=== PATIENT | female | born 1980 | race Hispanic/Latino ===

== ENCOUNTER 2025-07-01 10:21 | Emergency (ER) | payer OTHER, BC ==
[~2025-07-01] VITALS: Ht 162.6 cm; Wt 84.8 kg
--- NOTE | 2025-07-01 12:04 | HMCIMG ---
EXAM: CR left Hand, 3 View. CLINICAL HISTORY: trauma COMPARISON: None provided. FINDINGS: BONES: No acute fracture or aggressive appearing osseous lesion. JOINTS: No evidence of dislocation. The joint spaces are normal. SOFT TISSUES: The soft tissues appear within normal limits. No radiopaque foreign body is seen. IMPRESSION: No acute pathology evident. No acute fracture or dislocation. /[place]
--- NOTE | 2025-07-01 12:05 | HMCIMG ---
EXAM: CR left Forearm, 2 View. CLINICAL HISTORY: trauma COMPARISON: None provided. FINDINGS: BONES: No acute fracture or aggressive appearing osseous lesion. JOINTS: No dislocation. The joint spaces are normal. SOFT TISSUES: The soft tissues are unremarkable. IMPRESSION: No acute osseous abnormality. /[place]
--- NOTE | 2025-07-01 12:05 | HMCIMG ---
EXAM: CR left Wrist, 3 View. CLINICAL HISTORY: trauma COMPARISON: None provided. FINDINGS: BONES: No acute osseous abnormality. No acute fracture. JOINTS: No dislocation. The carpal bones demonstrate normal alignment. Mild thumb basal joint osteoarthritis. SOFT TISSUES: The soft tissues are unremarkable. IMPRESSION: No acute osseous abnormality. No acute fracture or dislocation. /[place]
--- NOTE | 2025-07-01 12:48 | ERN ---
ED Note History of Present Illness Stated Complaint: LEFT FOREARM, LEFT THUMB PAIN Chief Complaint: Mechanical Fall Time Seen by MD: 10:38 Time Seen by Midlevel: 10:40 Dictation: 44-year-old female was up in the chair hanging a [place] when she had a fall. Patient states he tried to break her fall with her hands it is complaining of left forearm, left wrist, and left thumb pain. No obvious deformities or abrasions. No other complaints. Denies any head injury, negative LOC, negative blood thinners. Allergies: Coded Allergies: No Known Allergies (Unverified Allergy, Unknown, 07/01/25) Past Medical History Past Medical History: No Pertinent History Surgical History: Tonsillectomy, BTL LMP: Jun 07, 2025 Review of System Dictation Constitutional: Negative for fever,chills, and weight loss Eyes: Negative for injury, pain,redness, and discharge ENT: Negative for injury,pain or swelling Cardiovascular: Negative for chest pain, palpitations, and edema Respiratory: Negative for shortness of breath, cough, and wheezing, Abdomen/GI: Negative for abdominal pain, nausea, vomiting, diarrhea, and constipation Back: Negative for injury and pain : Negative for injury, bleeding and discharge MS/Extremity: Complaining of left wrist, the forearm and left thumb. Skin: Negative for rash, and discoloration Neuro: Negative for headache, weakness, numbness, tingling, and seizure Psych: Negative for suicide ideation, homicidal ideation, and hallucinations Review of Systems: was completed Initial Vital Sign VS Vital Signs Date Time Temp Pulse Resp B/P (MAP) Pulse Ox O2 Delivery O2 Flow Rate FiO2 07/01/25 10:22 98.1 74 16 130/80 100 Room Air 0 07/01/25 11:26 21 Physical Exam Dictation General: awake, alert, NAD Head/Face: Normocephalic, atraumatic Eyes: PERRL, EOMI, vision at baseline ENT: oral cavity clear, TMs clear, no signs of infection Neck: Trachea midline, supple, no nuchal rigidity Cardiovascular: RRR, normal S1/S2, No MRGs, no JVD Respiratory: CTAB, no respiratory distress, No rales or wheezes Abdomen: Soft, non-tender, non-distended, normal bowel sounds, no guarding or rebound. Skin: Warm, dry, normal turgor, no rash MS/Extremity: Pulses equal, no cyanosis, neurovascular intact, FROM Neuro: COAx4, GCS 15, strength 5/5, CN 2-12 intact, normal cerebellar exam, normal gait, Psych: Normal behavior, mood, and affect normal Results (Laboratory/Radiology) X-RAY Comment: [place] [id number] [id number] IMAGING REPORT Signed PATIENT: THO ROBERTO MR#: [id number] : 1980 SEX: F AGE: 44 LOCATION: EDH ORDER 04 STATUS: REG ER REPORT#: [id number] SERVICE 03 REASON: trauma ORDERING PHYSICIAN: YVETTE SHAH CNP PROCEDURE: WRST 3V LT - WRIST COMP 3+VWS LT EXAM: CR left Wrist, 3 View. CLINICAL HISTORY: trauma COMPARISON: None provided. FINDINGS: BONES: No acute osseous abnormality. No acute fracture. JOINTS: No dislocation. The carpal bones demonstrate normal alignment. Mild thumb basal joint osteoarthritis. SOFT TISSUES: The soft tissues are unremarkable. IMPRESSION: No acute osseous abnormality. No acute fracture or dislocation. /[place] DICTATED BY: TAMMY HURLEY Jr., MD DATE: 07/01/251303 ELECTRONICALLY SIGNED BY: TAMMY HURLEY Jr., MD DATE: 07/01/251303 [place] [id number] [id number] IMAGING REPORT Signed PATIENT: THO ROBERTO MR#: [id number] : 1980 SEX: F AGE: 44 LOCATION: ED ORDER 04 STATUS: REG ER DISPENSARY REPORT#: [id number] SERVICE 03 REASON: trauma ORDERING PHYSICIAN: YVETTE SHAH [employer] PROCEDURE: HAND 3V LT - HAND 3+VWS LT EXAM: CR left Hand, 3 View. CLINICAL HISTORY: trauma COMPARISON: None provided. FINDINGS: BONES: No acute fracture or aggressive appearing osseous lesion. JOINTS: No evidence of dislocation. The joint spaces are normal. SOFT TISSUES: The soft tissues appear within normal limits. No radiopaque foreign body is seen. IMPRESSION: No acute pathology evident. No acute fracture or dislocation. /[place] DICTATED BY: TAMMY HURLEY Jr., MD DATE: 07/01/25 130 ELECTRONICALLY SIGNED BY: TAMMY HURLEY Jr., MD DATE: 07/01/25 [address] [place] [address] IMAGING REPORT Signed PATIENT: THO ROBERTO MR#: [id number] : 1980 SEX: F AGE: 44 LOCATION: EDH ORDER 04 STATUS: REG ER [facility] REPORT#: [id number] SERVICE 110 REASON: trauma ORDERING PHYSICIAN: YVETTE SHAH CNP PROCEDURE: FORARML - FOREARM 2VWS LT EXAM: CR left Forearm, 2 View. CLINICAL HISTORY: trauma COMPARISON: None provided. FINDINGS: BONES: No acute fracture or aggressive appearing osseous lesion. JOINTS: No dislocation. The joint spaces are normal. SOFT TISSUES: The soft tissues are unremarkable. IMPRESSION: No acute osseous abnormality. /[place] DICTATED BY: TAMMY HURLEY Jr., MD DATE: 07/01/25 130 ELECTRONICALLY SIGNED BY: TAMMY HURLEY Jr., MD DATE: 07/01/25 130 ED Course ED Course Orders Procedure Category Date Status Time Wrist Comp 3+Vws Lt RAD 07/01/25 Resulted 11:04 Forearm 2vws Lt RAD 07/01/25 Resulted 11:04 Hand 3+Vws Lt RAD 07/01/25 Resulted 11:04 Vital Signs Date Time Temp Pulse Resp B/P (MAP) Pulse Ox O2 Delivery O2 Flow Rate FiO2 07/01/25 11:26 98.8 90 18 120/70 99 Room Air* 0 21 07/01/25 10:22 98.1 74 16 130/80 100 Room Air 0 Medical Decision Making MDM MDM: 44-year-old female was up in the chair hanging a [place] when she had a fall. Patient states he tried to break her fall with her hands it is complaining of left forearm, left wrist, and left thumb pain. No obvious deformities or abrasions. No other complaints. Denies any head injury, negative LOC, negative blood thinners. X-ray of the forearm, wrist, and thumb are normal. No acute finding. Discussed with the patient she can take Tylenol or Motrin [id number] for pain control and to follow up with PCP in 1-2 days. Patient verbalized understanding, answered all questions. Differential diagnosis: Fracture, thumb fracture, sprain Rationale: Tests considered and ordered secondary to shared decision making include: Previous outside records reviewed: Old ER visits. Risk of complication and/or morbidity or mortality of patient management: None Medications-Per medication reconciliation Need for hospitalization: Patient does not meet criteria for hospitalization. Need for emergency major/minor surgery: No There are no social concerns with this patient. Prescription drug management Prescriptions will include symptomatic care Patient's prior external medical records from other ER visits were reviewed by me as indicated. Prior testing and results from previous visits were reviewed. Prior tests were taken into account with medical decision making and resource utilization, independent historian/historians were used to obtain complete medical history. I independently interpreted the test that were performed, results were reviewed by me and considered findings on radiology if ordered. Medical management and examination interpretation discussions were had by me with other qualified healthcare professionals as indicated for the patient's care. DX & DISP Disposition: Discharge Departure Impression: Primary Impression: Wrist sprain Condition: Stable Additional Instructions: Follow up with your primary care doctor in 1-2 days. Your x-ray showed no broken bones. Take Tylenol or Motrin [id number] for pain control. Return to the hospital as needed Referrals: TOPHER DYE (PCP) Time of Disposition: 12:48 I have reviewed the case, and I agree with, Diagnosis and Plan YVETTE SHAH CNP Jul 01, 2025 12:48
[2025-07-01 13:09] VITALS: BP 124/72; PULSE 88; RESP 16; TEMP 98.2; O2SAT 100
== END 2025-07-01 13:10 | disposition home or self-care (01) ==
LOC: EDH 10:21
DX: S63.502A Unspecified sprain of left wrist, initial encounter (principal); M79.632 Pain in left forearm; M25.532 Pain in left wrist; Z90.89 Acquired absence of other organs; Z98.51 Tubal ligation status; W18.39XA Other fall on same level, initial encounter; Y93.89 Activity, other specified; Y92.89 Other specified places as the place of occurrence of the external cause; Y99.0 Civilian activity done for income or pay
CPT/HCPCS: 73090; 73110; 73130; 99284